=== PATIENT | male | born 1975 | race Caucasian/White ===

== ENCOUNTER 2020-06-20 10:56 | Emergency (ER) | payer OTHER ==
--- NOTE | 2020-06-20 11:33 | EDM.PDOC ---
ED HPI GENERAL MEDICAL PROBLEM - General Chief Complaint: Abdominal Pain Stated Complaint: ABDOMINAL PAIN AND NECK PAIN Time Seen by Provider: 06/20/20 11:23 - History of Present Illness INITIAL COMMENTS - FREE TEXT/NARRATIVE: 45-year-old male presents the emergency room with neck head and abdominal pain. 2 days ago the patient was involved in this fortunate event at work. He was carrying up a semitrailer tire and the tire exploded. Apparently this knocked him back 5 or 6 feet he had his head and has had loss of consciousness for several minutes after this. But 10 hours after this happened the patient developed some nausea that has not gone away. He also has some neck discomfort. Patient's biggest complaint is abdominal pain that is not improved since this time apparently most of the force hit him in the abdomen and this pushed him back before landing on his head. Patient denies any significant past medical problems. Middle Abdomen Pain Score (Numeric/FACES): 8 - Related Data Allergies Allergy/AdvReac Type Severity Reaction Status Date / Time No Known Allergies Allergy Verified 06/20/20 11:06 Home Meds: Home Meds . [No Known Home Meds] 06/20/20 [History] ED ROS GENERAL - Review of Systems Review Of Systems: See Below Constitutional: Reports: No Symptoms HEENT: Reports: No Symptoms Respiratory: Reports: Pleuritic Chest Pain. Denies: Shortness of Breath, Cough, Sputum, Hemoptysis Cardiovascular: Denies: Dyspnea on Exertion, Edema, Lightheadedness GI/Abdominal: Reports: Abdominal Pain, Nausea. Denies: Constipation, Diarrhea, Vomiting Musculoskeletal: Reports: Neck Pain Skin: Reports: No Symptoms Neurological: Reports: Headache Hematologic/Lymphatic: Reports: No Symptoms Immunologic: Reports: No Symptoms ED EXAM, GENERAL - Physical Exam Exam: See Below Exam Limited By: Other (Getting specific answers is somewhat difficult) Eye Exam: Bilateral Eye: Normal Inspection Ears: Normal External Exam, Normal Canal, Hearing Grossly Normal, Normal TMs Nose: Normal Inspection, Normal Mucosa, No Blood Throat/Mouth: Normal Inspection, Normal Lips, Normal Teeth, Normal Gums, Normal Oropharynx, Normal Voice, No Airway Compromise, Other (He has a few missing teeth but no other abnormalities appreciated) Head: Atraumatic, Normocephalic Neck: Other (He has some vague tenderness in the neck I cannot get a specific answer about bony tenderness but from exam feel he has some muscle tightness and spasm. He demonstrates good range of motion of his neck however.) Respiratory/Chest: No Respiratory Distress, Lungs Clear, Normal Breath Sounds Cardiovascular: Regular Rate, Rhythm, No Edema, No Murmur GI/Abdominal: Normal Bowel Sounds, Soft, Pelvis Stable, Other (He has periumbilical tenderness and right lower quadrant tenderness and to a lesser degree left upper quadrant discomfort no rigidity or rebound noted) Back Exam: Normal Inspection. No: CVA Tenderness (L), CVA Tenderness (R) Extremities: Normal Inspection, No Pedal Edema Neurological: Alert Skin Exam: Warm, Dry, Intact Lymphatic: No Adenopathy Course - Vital Signs Last Recorded V/S: Last Vital Signs Temp 36.6 C 06/20/20 11:07 Pulse 89 06/20/20 11:07 Resp 16 06/20/20 11:07 BP 133/79 06/20/20 11:07 Pulse Ox 96 06/20/20 11:07 - Orders/Labs/Meds Orders: Active Orders 24 hr Category Date Time Status Sodium Chloride 0.9% [Saline Flush] Med 06/20/20 12:08 Active 10 ml FLUSH ONETIME PRN Medication Orders Sodium Chloride (Saline Flush) 10 ml FLUSH ONETIME PRN PRN Reason: IV FLUSH Last Admin: 06/20/20 12:09 Dose: 10 ml Documented by: [email or web address] Labs: Laboratory Tests 06/20/20 06/20/20 06/20/20 Range/Units 12:20 12:20 13:00 WBC 9.15 H (4.23-9.07) K/mm3 RBC 5.38 (4.63-6.08) M/mm3 Hgb 15.9 (13.7-17.5) gm/dl Hct 46.8 (40.1-51.0) % MCV 87.0 (79.0-92.2) fl MCH 29.6 (25.7-32.2) pg MCHC 34.0 (32.2-35.5) g/dl RDW Std Deviation 39.8 (35.1-43.9) fL Plt Count 295 (163-337) K/mm3 MPV 9.7 (9.4-12.3) fl Neut % (Auto) 70.9 H (34.0-67.9) % Lymph % (Auto) 16.3 L (21.8-53.1) % [place] % (Auto) 8.9 (5.3-12.2) % Eos % (Auto) 3.5 (0.8-7.0) Baso % (Auto) 0.2 (0.1-1.2) % Neut # (Auto) 6.49 H (1.78-5.38) K/mm3 Lymph # (Auto) 1.49 (1.32-3.57) K/mm3 [place] # (Auto) 0.81 (0.30-0.82) K/mm3 Eos # (Auto) 0.32 (0.04-0.54) K/mm3 Baso # (Auto) 0.02 (0.01-0.08) K/mm3 Sodium 141 (136-145) mEq/L Potassium 4.0 (3.5-5.1) mEq/L Chloride 102 (98-107) mEq/L Carbon Dioxide 29 (21-32) mEq/L Anion Gap 14.0 (5-15) BUN 12 (7-18) mg/dL Creatinine 1.2 (0.7-1.3) mg/dL Est Cr Clr Drug Dosing TNP Estimated GFR (MDRD) > 60 (>60) mL/min BUN/Creatinine Ratio 10.0 L (14-18) Glucose 96 (74-106) mg/dL Calcium 9.0 (8.5-10.1) mg/dL Total Bilirubin 0.5 (0.2-1.0) mg/dL AST 16 (15-37) U/L ALT 33 (16-63) U/L Alkaline Phosphatase 99 (46-116) U/L Total Protein 7.3 (6.4-8.2) g/dl Albumin 3.4 (3.4-5.0) g/dl Globulin 3.9 gm/dL Albumin/Globulin Ratio 0.9 L (1-2) Amylase 96 (25-115) U/L Lipase 216 (73-393) U/L Urine Color Yellow (Yellow) Urine Appearance Clear (Clear) Urine pH 7.0 (5.0-8.0) Ur Specific [place] 1.015 (1.005-1.030) Urine Protein 1+ H (Negative) Urine Glucose (UA) Negative (Negative) Urine Ketones Negative (Negative) Urine Occult Blood 1+ H (Negative) Urine Nitrite Negative (Negative) Urine Bilirubin Negative (Negative) Urine Urobilinogen 0.2 (0.2-1.0) Ur Leukocyte Esterase Negative (Negative) Urine RBC 5-10 H (0-5) /hpf Urine WBC 0-5 (0-5) /hpf Ur Squamous Epith Cells 0-5 (0-5) /hpf Urine Bacteria Few (FEW) /hpf Urine Mucus Few (FEW) /hpf Meds: Medications Generic Name Dose Route Start Last Admin Trade Name Freq PRN Reason Stop Dose Admin Sodium Chloride 10 ml 06/20/20 12:08 06/20/20 12:09 Saline Flush FLUSH 10 ml ONETIME PRN Administration IV FLUSH Discontinued Medications Generic Name Dose Route Start Last Admin Trade Name Freq PRN Reason Stop Dose Admin Iopamidol 100 ml 06/20/20 12:08 06/20/20 12:09 Isovue-300 (61%) IVPUSH 06/20/20 12:09 100 ml ONETIME ONE Administration - Re-Assessments/Exams Free Text/Narrative Re-Assessment/Exam: 06/20/20 13:58 Laboratory evaluation is fairly unremarkable with exception of some mild microscopic hematuria. This could be the result of recent abdominal trauma. Head CT is unremarkable C-spine x-ray shows some advanced degenerative changes but nothing acute. Chest x-ray is unremarkable abdominal pelvic CT shows a fairly full stool accumulation pattern however no acute changes. I did discuss the findings of all this with the patient and recommended he start MiraLAX and use Tylenol for discomfort the patient verbalizes understanding and will do this I have also recommended the patient follow-up in the clinic in about a week to have his urine rechecked. Departure - Departure Time of Disposition: 14:02 Disposition: Home, Self-Care 01 Clinical Impression: Abdominal pain, Constipation, Cervical strain, acute, Head injury - Discharge Information Referrals: PCP,None [Primary Care Provider] - Forms: ED Department Discharge Additional Instructions: Return to the emergency room with any questions problems or worsening symptoms. Follow-up in one of the hospital clinics in 1 week for recheck. Have them recheck your urine to make sure the small amount of blood noted in today's sample has resolved. Start MiraLAX use as directed. Tylenol as needed for discomfort. Drink lots of fluids. Sepsis Event Note (ED) - Evaluation Sepsis Screening Result: No Definite Risk - Focused Exam Vital Signs: Vital Signs Temp Pulse Resp BP Pulse Ox 06/20/20 11:07 36.6 C 89 16 133/79 96 - My Orders Last 24 Hours: My Active Orders 06/20/20 12:08 Sodium Chloride 0.9% [Saline Flush] 10 ml FLUSH ONETIME PRN - Assessment/Plan Last 24 Hours: My Active Orders 06/20/20 12:08 Sodium Chloride 0.9% [Saline Flush] 10 ml FLUSH ONETIME PRN
[2020-06-20] MEDS ORDERED: Iopamidol 612 MG/ML 100 ML Bottle IVPUSH ONE (12:08)
[2020-06-20] MEDS ORDERED: Sodium Chloride 0.9% 10 ML Syringe FLUSH PRN (12:08)
--- NOTE | 2020-06-20 12:36 | CT ---
Head CT Technique: Multiple axial sections through the brain were obtained. Intravenous contrast was not utilized. Comparison: No prior intracranial imaging is available. Findings: Ventricles along with basal cisterns and sulci over the convexities appear within normal limits for the patient's age. No abnormal parenchymal densities are seen. No evidence of intracranial hemorrhage. No midline shift or mass-effect is appreciated. Bone window settings were reviewed. Visualized mastoid sinuses and visualized paranasal sinuses show nothing acute. No acute calvarial finding is appreciated. Impression: 1. Nothing acute is appreciated on noncontrast head CT exam. Diagnostic code #1
--- NOTE | 2020-06-20 12:36 | CT ---
CT abdomen and pelvis Technique: Multiple axial sections were obtained from above the dome of the diaphragm inferiorly through the pubic symphysis. Intravenous contrast was utilized. No oral contrast has been given. Delayed images were obtained through the bladder. Comparison: No prior abdominal imaging is available. Findings: Visualized lung bases show nothing acute. Liver contains no focal parenchymal abnormality. Spleen appears within normal limits. Adrenal glands show no nodule. Pancreas is within normal limits. Gallbladder contains no calcified gallstones. Kidneys show symmetric contrast enhancement with no hydronephrosis or mass being seen. Aorta shows no aneurysm. No retroperitoneal adenopathy or mesenteric abnormalities are seen. No pelvic mass or adenopathy is noted. Mild diverticuli are seen within the sigmoid colon with no inflammatory change. There is mild increased stool seen throughout the colon. Delayed images show contrast within both distal ureters as well as within the bladder. Bone window settings were reviewed which shows minimal degenerative change within the spine. No acute osseous finding is appreciated. Impression: 1. Slight increased stool within the colon. 2. Other findings believed to be incidental. 3. No acute abnormality is appreciated. Diagnostic code #2
--- NOTE | 2020-06-20 12:43 | CR ---
Chest: 2 views of the chest were obtained. Comparison: No prior chest imaging is available. Heart size and mediastinum are normal. Lungs are clear with no acute parenchymal change. Bony structures show nothing acute. Old healed fracture is noted within the left clavicle. Impression: 1. Nothing acute is appreciated on 2 view chest x-ray. Diagnostic code #2
--- NOTE | 2020-06-20 12:43 | CR ---
Cervical spine: AP, lateral and odontoid views of the cervical spine were obtained. Comparison: No previous cervical spine study. Findings: Mild disc space narrowing noted at C3-4 and C4-5. More severe disc space narrowing noted at C5-6 and C6-7. Posterior osteophytes are noted at C3-4 as well as more prominent osteophytes seen posteriorly at C5-6 and C6-7. Anterior osteophytes noted throughout the cervical spine. Several soft tissue calcifications are seen posteriorly. Minimal degenerative change is seen within the uncovertebral joints mostly at C5-6 and C6-7. Deformity partially visualized within the left clavicle compatible with old healed fracture. No acute fracture or abnormal subluxation is seen. Impression: 1. Degenerative change as noted above. 2. Nothing acute is appreciated on 3 view cervical spine exam. Diagnostic code #2
== END 2020-06-20 14:12 | disposition home or self-care (01) ==
LOC: JD.ED 10:56
DX: S06.9X9A Unspecified intracranial injury with loss of consciousness of unspecified duration, initial encounter (principal); K59.00 Constipation, unspecified; S16.1XXA Strain of muscle, fascia and tendon at neck level, initial encounter; Y99.0 Civilian activity done for income or pay; W37.8XXA Explosion and rupture of other pressurized tire, pipe or hose, initial encounter
CPT/HCPCS: 36415; 70450; 71046; 72040; 74177; 80053; 81001; 82150; 83690; 85025; 99284; Q9967; 99283